=== PATIENT | female | born 1970 | race Caucasian/White ===

== ENCOUNTER 2017-09-11 13:43 | Emergency (ER) | payer MEDICARE, OTHER ==
[2017-09-11 15:29] LABS: ADD MAN DIFF? NO
[2017-09-11 15:33] LABS: WHITE BLOOD COUNT 7.1 10^3/ul (4.8-10.8)
[2017-09-11 15:33] LABS: BASOPHIL # 0.1 10^3/ul (0.0-0.1); BASOPHILS % 1.1 % (0.0-2.0); EOSINOPHILS # 0.1 10^3/ul (0.0-0.5); HEMATOCRIT 43.9 % (37.0-47.0); HEMOGLOBIN 15.1 g/dl (12.0-16.0); LYMPHOCYTES # 2.2 10^3/ul (0.8-2.9); LYMPHOCYTES % 31.4 % (15.0-51.0); MEAN CORPUSCULAR HEMOGLOBIN 32.8 pg (29.0-33.0); MEAN CORPUSCULAR HGB CONC 34.4 g/dl (32.0-37.0); MEAN CORPUSCULAR VOLUME 95.4 fl (82.0-101.0); MEAN PLATELET VOLUME 10.1 fl (7.4-10.4); MONOCYTE # 0.4 10^3/ul (0.3-0.9); MONOCYTES % 5.4 % (0.0-11.0); NEUTROPHIL # 4.3 10^3/ul (1.6-7.5); NEUTROPHILS % 60.8 % (39.0-77.0); PLATELET COUNT 260 10^3/UL (140-415); RED CELL DISTRIBUTION WIDTH 12.8 % (11.5-14.5)
[2017-09-11] MEDS: METOCLOPRAMIDE 10 MG INJ IV (15:35)
[2017-09-11] MEDS: LACTATED RINGER'S 1,000 ML IV (15:35)
[2017-09-11] MEDS: morphine 4 MG/ML VIAL IV (15:35)
[2017-09-11] MEDS: SOD CHLORIDE 0.9% 1,000 ML IV (15:36)
[2017-09-11 15:44] LABS: ADD UMIC YES; UR ASCORBIC ACID NEGATIVE (NEGATIVE); UR BILIRUBIN (Dip) NEGATIVE (NEGATIVE); UR BLOOD (Dip) 1+ mg/dL (NEGATIVE); UR CLARITY SLIGHTLY CLOUDY (CLEAR); UR COLOR YELLOW (YELLOW); UR GLUCOSE (Dip) NEGATIVE (NEGATIVE); UR KETONES (Dip) 2+ mg/dL (NEGATIVE); UR LEUKOCYTE ESTERASE (Dip) NEGATIVE Leu/ul (NEGATIVE); UR MUCUS FEW /HPF (NONE SEEN); UR NITRITE (Dip) NEGATIVE (NEGATIVE); UR RBC 11 /HPF (0-5); UR SPECIFIC GRAVITY (Dip) 1.013 (1.003-1.030); UR SQUAMOUS EPITHELIAL CELL FEW /HPF (FEW); UR TOTAL PROTEIN (Dip) NEGATIVE (NEGATIVE); UR UROBILINOGEN (Dip) NEGATIVE (NEGATIVE); UR WBC 2 /HPF (0-5)
[2017-09-11 15:51] LABS: ALANINE AMINOTRANSFERASE 28 IU/L (13-69); ALBUMIN 4.6 g/dl (3.3-4.9); ALBUMIN/GLOBULIN RATIO 1.53; ALKALINE PHOSPHATASE 71 IU/L (42-121); ANION GAP 17 (8-16); ASPARTATE AMINO TRANSFERASE 23 IU/L (15-46); BILIRUBIN,INDIRECT 0.3 mg/dl (0-1.1); BILIRUBIN,TOTAL 0.3 mg/dl (0.2-1.3); BLOOD UREA NITROGEN 11 mg/dl (7-20); CALCIUM 9.3 mg/dl (8.4-10.2); CARBON DIOXIDE 21 mmol/L (21-31); CHLORIDE 108 mmol/L (97-110); GLUCOSE 95 mg/dl (70-220); LIPASE 109 U/L (23-300); POTASSIUM 3.7 mmol/L (3.5-5.1); SODIUM 142 mmol/L (135-144); TOTAL PROTEIN 7.6 g/dl (6.1-8.1)
== END 2017-09-11 18:42 | disposition home or self-care (01) ==
LOC: E/R 13:43
DX: G47.00 Insomnia, unspecified (principal); R11.2 Nausea with vomiting, unspecified; E86.0 Dehydration
CPT/HCPCS: 80053; 81001; 82962; 83690; 85025; 93005; 96374; 96375; 99284-25

== ENCOUNTER 2017-10-14 01:15 | Emergency (ER) | payer MEDICARE, OTHER ==
[2017-10-14] MEDS: ONDANSETRON (ODT) 4 MG TAB ODT (03:04)
[2017-10-14] MEDS: morphine 4 MG/ML VIAL IM (03:04)
== END 2017-10-14 03:18 | disposition home or self-care (01) ==
LOC: E/R 01:15
DX: M54.5 Low back pain (principal); G89.29 Other chronic pain
CPT/HCPCS: 99284

== ENCOUNTER 2018-06-29 14:14 | Emergency (ER) | payer MEDICARE, OTHER | END 2018-06-29 16:18 | disposition home or self-care (01) | LOC: FTE 14:14 | DX: J30.9 Allergic rhinitis, unspecified (principal) | CPT/HCPCS: 99283 ==

== ENCOUNTER 2018-07-23 23:25 | Inpatient (IN) | payer MEDICARE, OTHER ==
[2018-07-24] MEDS: LIDOCAINE/MYLANTA 40 ML BTL PO (02:34)
[2018-07-24] MEDS: ONDANSETRON 4 MG INJ IV (02:34)
[2018-07-24] MEDS: BELLADONNA/PHENOBARBITAL TAB PO (02:34)
[2018-07-24] MEDS: SOD CHLORIDE 0.9% 1,000 ML IV ×2 (02:34→03:58)
[2018-07-24] MEDS: FAMOTIDINE 20 MG INJ IV ×3 (02:35→21:13)
[2018-07-24 03:08] LABS: ADD MAN DIFF? NO
[2018-07-24 03:11] LABS: BASOPHIL # 0.1 10^3/ul (0.0-0.1); BASOPHILS % 0.9 % (0.0-2.0); EOSINOPHILS # 0.2 10^3/ul (0.0-0.5); EOSINOPHILS % 2.1 % (0.0-7.0); HEMATOCRIT 37.7 % (37.0-47.0); HEMOGLOBIN 12.8 g/dl (12.0-16.0); LYMPHOCYTES % 33.7 % (15.0-51.0); MEAN CORPUSCULAR HEMOGLOBIN 32.5 pg (29.0-33.0); MEAN CORPUSCULAR VOLUME 95.7 fl (82.0-101.0); MEAN PLATELET VOLUME 10.1 fl (7.4-10.4); MONOCYTE # 0.7 10^3/ul (0.3-0.9); MONOCYTES % 7.8 % (0.0-11.0); NEUTROPHIL # 4.9 10^3/ul (1.6-7.5); NEUTROPHILS % 55.3 % (39.0-77.0); PLATELET COUNT 238 10^3/UL (140-415); RED BLOOD COUNT 3.94 10^6/ul (4.20-5.40); RED CELL DISTRIBUTION WIDTH 12.4 % (11.5-14.5)
[2018-07-24 03:11] LABS: WHITE BLOOD COUNT 8.9 10^3/ul (4.8-10.8)
[2018-07-24 03:34] LABS: ALANINE AMINOTRANSFERASE 20 IU/L (13-69); ALBUMIN 4.5 g/dl (3.3-4.9); ALKALINE PHOSPHATASE 70 IU/L (42-121); ANION GAP 7 (5-13); ASPARTATE AMINO TRANSFERASE 22 IU/L (15-46); BILIRUBIN,INDIRECT 0.3 mg/dl (0-1.1); BILIRUBIN,TOTAL 0.3 mg/dl (0.2-1.3); BLOOD UREA NITROGEN 10 mg/dl (7-20); CALCIUM 9.5 mg/dl (8.4-10.2); CARBON DIOXIDE 30 mmol/L (21-31); CHLORIDE 107 mmol/L (97-110); CREATININE 0.52 mg/dl (0.44-1.00); Estimated GFR > 60 mL/min (>60); GLUCOSE 96 mg/dl (70-220); POTASSIUM 3.8 mmol/L (3.5-5.1); SODIUM 144 mmol/L (135-144); TOTAL PROTEIN 7.5 g/dl (6.1-8.1)
[2018-07-24 03:45] LABS: LIPASE 2115 U/L (23-300)
[2018-07-24] MEDS: FENTAnyl 50 MCG/ML VIAL IV (03:59)
[2018-07-24] MEDS ORDERED: ONDANSETRON 4 MG INJ IV (05:00)
[2018-07-24] MEDS ORDERED: ACETAMINOPHEN 325 MG TAB PO (05:00)
[2018-07-24] MEDS: HYDROmorphONE 0.5 MG/0.5 ML SYG IV (05:56)
[2018-07-24] MEDS ORDERED: NACL 0.9% 3 ML SYG IV (07:00)
[2018-07-24] MEDS: DEXTROSE 5%-0.45% NACL 1,000 ML IV ×4 (07:40→22:22)
[2018-07-24] MEDS: HEPARIN 5,000 UNIT/1 ML VIAL SC ×2 (09:07→21:13)
[2018-07-24] MEDS: GABAPENTIN 400 MG CAP PO ×2 (12:34→21:12)
[2018-07-24] MEDS: morphine 2 MG INJ IV ×2 (12:36→19:50)
[2018-07-24] MEDS: CARISOPRODOL 350 MG TAB PO ×2 (13:56→22:21)
[2018-07-24] MEDS: ZOLPIDEM 5 MG TAB PO (22:18)
[2018-07-25] MEDS: ONDANSETRON 4 MG INJ IV (01:43)
[2018-07-25] MEDS: morphine 2 MG INJ IV ×4 (01:43→19:30)
[2018-07-25 05:43] LABS: ADD MAN DIFF? NO
[2018-07-25 05:57] LABS: BASOPHIL # 0.1 10^3/ul (0.0-0.1); BASOPHILS % 1.6 % (0.0-2.0); EOSINOPHILS # 0.2 10^3/ul (0.0-0.5); EOSINOPHILS % 3.3 % (0.0-7.0); HEMATOCRIT 33.4 % (37.0-47.0); HEMOGLOBIN 11.2 g/dl (12.0-16.0); LYMPHOCYTES # 2.3 10^3/ul (0.8-2.9); LYMPHOCYTES % 47.3 % (15.0-51.0); MEAN CORPUSCULAR HEMOGLOBIN 32.4 pg (29.0-33.0); MEAN CORPUSCULAR HGB CONC 33.5 g/dl (32.0-37.0); MEAN CORPUSCULAR VOLUME 96.5 fl (82.0-101.0); MEAN PLATELET VOLUME 10.2 fl (7.4-10.4); MONOCYTE # 0.4 10^3/ul (0.3-0.9); MONOCYTES % 7.5 % (0.0-11.0); NEUTROPHILS % 40.1 % (39.0-77.0); PLATELET COUNT 212 10^3/UL (140-415); RED BLOOD COUNT 3.46 10^6/ul (4.20-5.40); RED CELL DISTRIBUTION WIDTH 12.4 % (11.5-14.5)
[2018-07-25 05:57] LABS: WHITE BLOOD COUNT 4.9 10^3/ul (4.8-10.8)
[2018-07-25 06:32] LABS: ALANINE AMINOTRANSFERASE 23 IU/L (13-69); ALBUMIN 3.5 g/dl (3.3-4.9); ALBUMIN/GLOBULIN RATIO 1.59; ALKALINE PHOSPHATASE 50 IU/L (42-121); ANION GAP 2 (5-13); ASPARTATE AMINO TRANSFERASE 22 IU/L (15-46); BILIRUBIN,INDIRECT 0.4 mg/dl (0-1.1); BILIRUBIN,TOTAL 0.4 mg/dl (0.2-1.3); BLOOD UREA NITROGEN 5 mg/dl (7-20); CALCIUM 8.6 mg/dl (8.4-10.2); CARBON DIOXIDE 28 mmol/L (21-31); CHLORIDE 112 mmol/L (97-110); CHOL/HDL RATIO 3.1 RATIO; CHOLESTEROL 184 mg/dl (100-200); CREATININE 0.56 mg/dl (0.44-1.00); Estimated GFR > 60 mL/min (>60); GLUCOSE 85 mg/dl (70-220); HDL CHOLESTEROL 58 mg/dl (34-88); LDL CHOLESTEROL,CALCULATED 110 mg/dl; MAGNESIUM 2.1 mg/dl (1.7-2.5); PHOSPHORUS 3.9 mg/dl (2.5-4.9); POTASSIUM 3.9 mmol/L (3.5-5.1); SODIUM 142 mmol/L (135-144); TOTAL PROTEIN 5.7 g/dl (6.1-8.1); TRIGLYCERIDES 78 mg/dl (0-149)
[2018-07-25 06:47] LABS: THYROID STIMULATING HORMONE 0.514 MIU/L (0.465-4.680)
[2018-07-25] MEDS: DEXTROSE 5%-0.45% NACL 1,000 ML IV ×3 (06:50→21:31)
[2018-07-25 07:52] LABS: HEMOGLOBIN A1C 5.3 % (0-5.9)
[2018-07-25] MEDS: HEPARIN 5,000 UNIT/1 ML VIAL SC ×2 (08:21→19:57)
[2018-07-25] MEDS: FAMOTIDINE 20 MG INJ IV ×2 (08:21→19:58)
[2018-07-25] MEDS: GABAPENTIN 400 MG CAP PO ×3 (08:21→19:54)
[2018-07-25 11:31] LABS: LIPASE 157 U/L (23-300)
[2018-07-25] MEDS: CARISOPRODOL 350 MG TAB PO ×2 (12:29→21:31)
[2018-07-25] MEDS: traZODone 50 MG TAB PO ×2 (21:31→22:22)
[2018-07-25] MEDS: ZOLPIDEM 5 MG TAB PO (21:31)
[2018-07-25] MEDS: HYDROCODONE/APAP (5/325) TAB PO (22:03)
[2018-07-26] MEDS: morphine 2 MG INJ IV ×5 (05:18→21:18)
[2018-07-26] MEDS: DEXTROSE 5%-0.45% NACL 1,000 ML IV ×2 (05:20→13:10)
[2018-07-26] MEDS: GABAPENTIN 400 MG CAP PO ×3 (08:51→21:14)
[2018-07-26] MEDS: FAMOTIDINE 20 MG INJ IV ×2 (08:51→21:18)
[2018-07-26] MEDS: HEPARIN 5,000 UNIT/1 ML VIAL SC ×2 (08:51→21:19)
[2018-07-26] MEDS ORDERED: ARTIFICIAL TEARS 15 ML OPH BOTH EYES (10:00)
[2018-07-26] MEDS: SUCRALFATE 1 GM TAB PO ×3 (13:23→21:12)
[2018-07-26] MEDS: SOD CHLORIDE 0.9% 1,000 ML IV (14:18)
[2018-07-26] MEDS: traZODone 100 MG TAB PO (21:12)
[2018-07-26] MEDS: ZOLPIDEM 5 MG TAB PO (21:17)
[2018-07-26] MEDS: CARISOPRODOL 350 MG TAB PO (21:17)
[2018-07-27] MEDS: SOD CHLORIDE 0.9% 1,000 ML IV ×2 (03:20→06:13)
[2018-07-27] MEDS: SUCRALFATE 1 GM TAB PO ×2 (08:09→12:42)
[2018-07-27] MEDS: GABAPENTIN 400 MG CAP PO ×3 (08:09→22:03)
[2018-07-27] MEDS: morphine 2 MG INJ IV ×2 (08:09→11:54)
[2018-07-27] MEDS: FAMOTIDINE 20 MG INJ IV (08:10)
[2018-07-27] MEDS: HEPARIN 5,000 UNIT/1 ML VIAL SC ×2 (08:11→20:15)
[2018-07-27] MEDS ORDERED: HYOSCYAMINE 0.125 MG SUBL TAB PO (15:00)
[2018-07-27] MEDS: HYDROmorphONE 1 MG/ML SYG IV ×2 (15:17→20:16)
[2018-07-27] MEDS: POLYETHYLENE GLYCOL 3350 119 GM POWDER PO (17:43)
[2018-07-27] MEDS: SUCRALFATE (100 MG/ML) 10ML CUP PO ×2 (17:44→22:04)
[2018-07-27] MEDS: PANTOPRAZOLE 40 MG INJ IV (17:44)
[2018-07-27] MEDS: MAGNESIUM CITRATE 300 ML BTL PO (17:44)
[2018-07-27] MEDS: BISACODYL (EC) 5 MG TAB PO (17:46)
[2018-07-27] MEDS ORDERED: FAMOTIDINE 20 MG INJ IV (21:00)
[2018-07-27] MEDS: CARISOPRODOL 350 MG TAB PO (22:03)
[2018-07-27] MEDS: ZOLPIDEM 5 MG TAB PO (22:04)
[2018-07-27] MEDS: traZODone 100 MG TAB PO (22:04)
[2018-07-27] MEDS: HYDROCODONE/APAP (5/325) TAB PO (23:20)
[2018-07-28] MEDS: SOD CHLORIDE 0.9% 1,000 ML IV ×2 (01:27→15:21)
[2018-07-28] MEDS: PANTOPRAZOLE 40 MG INJ IV ×2 (05:56→18:00)
[2018-07-28] MEDS: POLYETHYLENE GLYCOL 3350 119 GM POWDER PO (05:56)
[2018-07-28] MEDS: HYDROmorphONE 1 MG/ML SYG IV ×4 (06:46→20:24)
[2018-07-28] MEDS: BISACODYL (EC) 5 MG TAB PO (08:02)
[2018-07-28 08:42] LABS: ADD MAN DIFF? NO
[2018-07-28 08:45] LABS: WHITE BLOOD COUNT 6.8 10^3/ul (4.8-10.8)
[2018-07-28 08:45] LABS: BASOPHIL # 0.1 10^3/ul (0.0-0.1); EOSINOPHILS # 0.1 10^3/ul (0.0-0.5); EOSINOPHILS % 1.9 % (0.0-7.0); HEMATOCRIT 35.4 % (37.0-47.0); LYMPHOCYTES # 2.1 10^3/ul (0.8-2.9); LYMPHOCYTES % 30.6 % (15.0-51.0); MEAN CORPUSCULAR HEMOGLOBIN 32.9 pg (29.0-33.0); MEAN CORPUSCULAR HGB CONC 33.9 g/dl (32.0-37.0); MEAN PLATELET VOLUME 10.1 fl (7.4-10.4); MONOCYTE # 0.5 10^3/ul (0.3-0.9); MONOCYTES % 7.4 % (0.0-11.0); NEUTROPHILS % 58.8 % (39.0-77.0); PLATELET COUNT 210 10^3/UL (140-415); RED BLOOD COUNT 3.65 10^6/ul (4.20-5.40); RED CELL DISTRIBUTION WIDTH 12.6 % (11.5-14.5)
[2018-07-28] MEDS: GABAPENTIN 400 MG CAP PO ×3 (09:00→22:14)
[2018-07-28] MEDS: SUCRALFATE (100 MG/ML) 10ML CUP PO ×4 (09:00→22:13)
[2018-07-28] MEDS: HEPARIN 5,000 UNIT/1 ML VIAL SC ×2 (09:00→22:15)
[2018-07-28 09:06] LABS: ALANINE AMINOTRANSFERASE 31 IU/L (13-69); ALBUMIN 3.8 g/dl (3.3-4.9); ALKALINE PHOSPHATASE 59 IU/L (42-121); ANION GAP 6 (5-13); ASPARTATE AMINO TRANSFERASE 25 IU/L (15-46); BILIRUBIN,INDIRECT 0.4 mg/dl (0-1.1); BILIRUBIN,TOTAL 0.4 mg/dl (0.2-1.3); BLOOD UREA NITROGEN 4 mg/dl (7-20); CALCIUM 8.9 mg/dl (8.4-10.2); CARBON DIOXIDE 25 mmol/L (21-31); CHLORIDE 111 mmol/L (97-110); CREATININE 0.66 mg/dl (0.44-1.00); Estimated GFR > 60 mL/min (>60); GLUCOSE 81 mg/dl (70-220); POTASSIUM 3.4 mmol/L (3.5-5.1); SODIUM 142 mmol/L (135-144); TOTAL PROTEIN 6.5 g/dl (6.1-8.1)
[2018-07-28 09:12] LABS: LIPASE 264 U/L (23-300)
[2018-07-28] MEDS ORDERED: ONDANSETRON 4 MG INJ IV (19:00)
[2018-07-28] MEDS: ZOLPIDEM 5 MG TAB PO (22:14)
[2018-07-28] MEDS: traZODone 100 MG TAB PO (22:14)
[2018-07-28] MEDS: CARISOPRODOL 350 MG TAB PO (22:14)
[2018-07-28] MEDS: HYDROCODONE/APAP (5/325) TAB PO (23:49)
[2018-07-29] MEDS: PANTOPRAZOLE 40 MG INJ IV ×2 (06:13→17:24)
[2018-07-29] MEDS: HYDROmorphONE 1 MG/ML SYG IV ×4 (06:15→21:02)
[2018-07-29 06:43] LABS: ALBUMIN 3.3 g/dl (3.3-4.9); ANION GAP 6 (5-13); BLOOD UREA NITROGEN 5 mg/dl (7-20); CALCIUM 8.6 mg/dl (8.4-10.2); CARBON DIOXIDE 23 mmol/L (21-31); CHLORIDE 113 mmol/L (97-110); CREATININE 0.62 mg/dl (0.44-1.00); GLUCOSE 78 mg/dl (70-220); MAGNESIUM 1.9 mg/dl (1.7-2.5); PHOSPHORUS 4.9 mg/dl (2.5-4.9); POTASSIUM 3.4 mmol/L (3.5-5.1); SODIUM 142 mmol/L (135-144)
[2018-07-29] MEDS: POTASSIUM CHLORIDE (SR) 20 MEQ TAB PO (11:18)
[2018-07-29] MEDS: SUCRALFATE (100 MG/ML) 10ML CUP PO ×4 (11:18→20:57)
[2018-07-29] MEDS: GABAPENTIN 400 MG CAP PO ×3 (11:21→20:57)
[2018-07-29] MEDS: HEPARIN 5,000 UNIT/1 ML VIAL SC ×2 (11:21→20:58)
[2018-07-29] MEDS: SOD CHLORIDE 0.9% 1,000 ML IV (12:40)
[2018-07-29] MEDS: LIDOCAINE/MYLANTA 40 ML BTL PO (15:43)
[2018-07-29] MEDS: HYOSCYAMINE 0.125 MG SUBL TAB PO ×2 (15:43→23:09)
[2018-07-29] MEDS: traZODone 100 MG TAB PO (20:57)
[2018-07-29] MEDS: CARISOPRODOL 350 MG TAB PO (21:39)
[2018-07-30] MEDS: PANTOPRAZOLE 40 MG INJ IV ×2 (06:15→17:46)
[2018-07-30] MEDS: HYOSCYAMINE 0.125 MG SUBL TAB PO ×3 (06:15→21:50)
[2018-07-30 06:30] LABS: ALBUMIN 3.4 g/dl (3.3-4.9); ANION GAP 5 (5-13); BLOOD UREA NITROGEN 3 mg/dl (7-20); CALCIUM 8.8 mg/dl (8.4-10.2); CARBON DIOXIDE 28 mmol/L (21-31); CHLORIDE 110 mmol/L (97-110); CREATININE 0.63 mg/dl (0.44-1.00); GLUCOSE 89 mg/dl (70-220); POTASSIUM 3.7 mmol/L (3.5-5.1); SODIUM 143 mmol/L (135-144)
[2018-07-30] MEDS: HYDROCODONE/APAP (10/325) TAB PO ×2 (09:12→15:37)
[2018-07-30] MEDS: GABAPENTIN 400 MG CAP PO ×3 (09:12→21:07)
[2018-07-30] MEDS: SUCRALFATE (100 MG/ML) 10ML CUP PO ×4 (09:12→21:05)
[2018-07-30] MEDS: HEPARIN 5,000 UNIT/1 ML VIAL SC ×2 (09:14→21:12)
[2018-07-30] MEDS: HYDROmorphONE 1 MG/ML SYG IV ×4 (10:07→21:50)
[2018-07-30] MEDS: traZODone 100 MG TAB PO (21:07)
[2018-07-30] MEDS: ZOLPIDEM 5 MG TAB PO (23:05)
[2018-07-30] MEDS: CARISOPRODOL 350 MG TAB PO (23:53)
[2018-07-31] MEDS: PANTOPRAZOLE 40 MG INJ IV ×2 (06:17→18:04)
[2018-07-31] MEDS: HYOSCYAMINE 0.125 MG SUBL TAB PO ×3 (06:17→22:11)
[2018-07-31] MEDS: SUCRALFATE (100 MG/ML) 10ML CUP PO ×4 (08:46→20:52)
[2018-07-31] MEDS: GABAPENTIN 400 MG CAP PO ×3 (08:46→20:52)
[2018-07-31] MEDS: HEPARIN 5,000 UNIT/1 ML VIAL SC ×2 (08:47→20:53)
[2018-07-31] MEDS: HYDROmorphONE 1 MG/ML SYG IV ×4 (08:47→23:06)
[2018-07-31 09:50] LABS: ADD MAN DIFF? NO
[2018-07-31 09:53] LABS: BASOPHIL # 0.1 10^3/ul (0.0-0.1); BASOPHILS % 1.2 % (0.0-2.0); EOSINOPHILS # 0.1 10^3/ul (0.0-0.5); EOSINOPHILS % 1.9 % (0.0-7.0); HEMATOCRIT 37.7 % (37.0-47.0); HEMOGLOBIN 12.9 g/dl (12.0-16.0); LYMPHOCYTES # 2.6 10^3/ul (0.8-2.9); LYMPHOCYTES % 40.2 % (15.0-51.0); MEAN CORPUSCULAR HEMOGLOBIN 32.3 pg (29.0-33.0); MEAN CORPUSCULAR HGB CONC 34.2 g/dl (32.0-37.0); MEAN CORPUSCULAR VOLUME 94.5 fl (82.0-101.0); MEAN PLATELET VOLUME 10.3 fl (7.4-10.4); MONOCYTE # 0.4 10^3/ul (0.3-0.9); MONOCYTES % 6.5 % (0.0-11.0); NEUTROPHIL # 3.2 10^3/ul (1.6-7.5); PLATELET COUNT 215 10^3/UL (140-415); RED BLOOD COUNT 3.99 10^6/ul (4.20-5.40); RED CELL DISTRIBUTION WIDTH 12.8 % (11.5-14.5)
[2018-07-31 09:53] LABS: WHITE BLOOD COUNT 6.4 10^3/ul (4.8-10.8)
[2018-07-31 10:14] LABS: ANION GAP 6 (5-13); BLOOD UREA NITROGEN 5 mg/dl (7-20); CARBON DIOXIDE 31 mmol/L (21-31); CHLORIDE 106 mmol/L (97-110); CREATININE 0.66 mg/dl (0.44-1.00); GLUCOSE 102 mg/dl (70-220); PHOSPHORUS 4.3 mg/dl (2.5-4.9); POTASSIUM 3.9 mmol/L (3.5-5.1); SODIUM 143 mmol/L (135-144)
[2018-07-31] MEDS: HYDROCODONE/APAP (10/325) TAB PO ×2 (11:09→18:04)
[2018-07-31] MEDS: traZODone 100 MG TAB PO (20:52)
[2018-07-31] MEDS: CARISOPRODOL 350 MG TAB PO (22:11)
[2018-08-01] MEDS: HYOSCYAMINE 0.125 MG SUBL TAB PO (05:36)
[2018-08-01] MEDS: PANTOPRAZOLE 40 MG INJ IV (05:38)
[2018-08-01] MEDS: HYDROmorphONE 1 MG/ML SYG IV ×2 (05:38→09:46)
[2018-08-01] MEDS: SUCRALFATE (100 MG/ML) 10ML CUP PO (08:17)
[2018-08-01] MEDS: GABAPENTIN 400 MG CAP PO (08:17)
[2018-08-01] MEDS: HEPARIN 5,000 UNIT/1 ML VIAL SC (08:18)
[2018-08-01] MEDS: PROPOFOL 40 ML (08:24)
[2018-08-01] MEDS: LIDOCAINE 2% (SDV) 5 ML INJ (08:24)
[2018-08-01] MEDS: IOHEXOL 14.3 MG(I)/ML (ADULT) BTL PO (08:25)
[2018-08-01] MEDS: PROPOFOL 20 ML (08:25)
[2018-08-01 11:04] LABS: ADD MAN DIFF? NO
[2018-08-01 11:09] LABS: BASOPHIL # 0.1 10^3/ul (0.0-0.1); BASOPHILS % 1.1 % (0.0-2.0); EOSINOPHILS # 0.2 10^3/ul (0.0-0.5); HEMATOCRIT 37.9 % (37.0-47.0); HEMOGLOBIN 12.7 g/dl (12.0-16.0); LYMPHOCYTES # 2.6 10^3/ul (0.8-2.9); LYMPHOCYTES % 47.6 % (15.0-51.0); MEAN CORPUSCULAR HEMOGLOBIN 32.6 pg (29.0-33.0); MEAN CORPUSCULAR HGB CONC 33.5 g/dl (32.0-37.0); MEAN CORPUSCULAR VOLUME 97.4 fl (82.0-101.0); MEAN PLATELET VOLUME 10.1 fl (7.4-10.4); MONOCYTE # 0.5 10^3/ul (0.3-0.9); MONOCYTES % 8.9 % (0.0-11.0); NEUTROPHIL # 2.1 10^3/ul (1.6-7.5); NEUTROPHILS % 38.2 % (39.0-77.0); PLATELET COUNT 217 10^3/UL (140-415); RED BLOOD COUNT 3.89 10^6/ul (4.20-5.40); RED CELL DISTRIBUTION WIDTH 13.2 % (11.5-14.5)
[2018-08-01 11:09] LABS: WHITE BLOOD COUNT 5.5 10^3/ul (4.8-10.8)
[2018-08-01 11:35] LABS: LIPASE 96 U/L (23-300)
[2018-08-01 11:39] LABS: ANION GAP 5 (5-13); BLOOD UREA NITROGEN 10 mg/dl (7-20); CARBON DIOXIDE 33 mmol/L (21-31); CHLORIDE 103 mmol/L (97-110); CREATININE 0.69 mg/dl (0.44-1.00); Estimated GFR > 60 mL/min (>60); GLUCOSE 94 mg/dl (70-220); MAGNESIUM 1.7 mg/dl (1.7-2.5); PHOSPHORUS 3.9 mg/dl (2.5-4.9); POTASSIUM 3.9 mmol/L (3.5-5.1); SODIUM 141 mmol/L (135-144)
[2018-08-01 11:55] LABS: ALANINE AMINOTRANSFERASE 33 IU/L (13-69); ALBUMIN 4.2 g/dl (3.3-4.9); ALKALINE PHOSPHATASE 52 IU/L (42-121); ASPARTATE AMINO TRANSFERASE 32 IU/L (15-46); BILIRUBIN,INDIRECT 0.3 mg/dl (0-1.1); BILIRUBIN,TOTAL 0.3 mg/dl (0.2-1.3); TOTAL PROTEIN 6.5 g/dl (6.1-8.1)
== END 2018-08-01 12:00 | disposition home or self-care (01) | DRG 439 ==
LOC: E/R 23:25 → PP2 07-24 04:39
PROC: 0DB58ZX Excision of Esophagus, Via Natural or Artificial Opening Endoscopic, Diagnostic (ICD-10-PCS; principal; 2018-07-28 16:15)
PROC: 0DB68ZX Excision of Stomach, Via Natural or Artificial Opening Endoscopic, Diagnostic (ICD-10-PCS; 2018-07-28 16:15)
PROC: 0D5P8ZZ Destruction of Rectum, Via Natural or Artificial Opening Endoscopic (ICD-10-PCS; 2018-07-28 16:15)
PROC: 0DBG8ZX Excision of Left Large Intestine, Via Natural or Artificial Opening Endoscopic, Diagnostic (ICD-10-PCS; 2018-07-28 16:15)
PROC: 0DBF8ZX Excision of Right Large Intestine, Via Natural or Artificial Opening Endoscopic, Diagnostic (ICD-10-PCS; 2018-07-28 16:15)
DX: K85.90 Acute pancreatitis without necrosis or infection, unspecified (principal); R64 Cachexia; Z68.1 Body mass index [BMI] 19.9 or less, adult; M79.7 Fibromyalgia; K29.70 Gastritis, unspecified, without bleeding; G89.4 Chronic pain syndrome; K22.70 Barrett's esophagus without dysplasia; K44.9 Diaphragmatic hernia without obstruction or gangrene; R19.7 Diarrhea, unspecified; K62.1 Rectal polyp; K64.8 Other hemorrhoids; Z79.1 Long term (current) use of non-steroidal anti-inflammatories (NSAID); Z80.0 Family history of malignant neoplasm of digestive organs
CPT/HCPCS: 36415; 71045; 74176; 76705; 80048; 80053; 80061; 80069; 80076; 83036; 83690; 83735; 84100; 84443; 85025; 88305; 88312; 96361; 96374; 96375; 99285-25

== ENCOUNTER 2018-08-04 13:21 | Emergency (ER) | payer MEDICARE, OTHER ==
[2018-08-04 17:21] LABS: ADD MAN DIFF? NO
[2018-08-04 17:27] LABS: BASOPHIL # 0.1 10^3/ul (0.0-0.1); BASOPHILS % 0.8 % (0.0-2.0); EOSINOPHILS # 0.1 10^3/ul (0.0-0.5); EOSINOPHILS % 1.8 % (0.0-7.0); HEMATOCRIT 36.4 % (37.0-47.0); HEMOGLOBIN 12.4 g/dl (12.0-16.0); LYMPHOCYTES % 32.6 % (15.0-51.0); MEAN CORPUSCULAR HEMOGLOBIN 32.6 pg (29.0-33.0); MEAN CORPUSCULAR HGB CONC 34.1 g/dl (32.0-37.0); MEAN CORPUSCULAR VOLUME 95.8 fl (82.0-101.0); MEAN PLATELET VOLUME 9.5 fl (7.4-10.4); MONOCYTE # 0.5 10^3/ul (0.3-0.9); MONOCYTES % 8.6 % (0.0-11.0); NEUTROPHIL # 3.5 10^3/ul (1.6-7.5); PLATELET COUNT 230 10^3/UL (140-415); RED CELL DISTRIBUTION WIDTH 13.2 % (11.5-14.5)
[2018-08-04 17:27] LABS: WHITE BLOOD COUNT 6.2 10^3/ul (4.8-10.8)
[2018-08-04] MEDS: ONDANSETRON 4 MG INJ IV (17:27)
[2018-08-04] MEDS: HYDROmorphONE 1 MG/ML SYG IV (17:27)
[2018-08-04] MEDS: SOD CHLORIDE 0.9% 1,000 ML IV (17:27)
[2018-08-04 17:45] LABS: ALANINE AMINOTRANSFERASE 43 IU/L (13-69); ALBUMIN 4.1 g/dl (3.3-4.9); ALBUMIN/GLOBULIN RATIO 1.41; ALKALINE PHOSPHATASE 51 IU/L (42-121); ANION GAP 10 (5-13); ASPARTATE AMINO TRANSFERASE 33 IU/L (15-46); BILIRUBIN,INDIRECT 0.4 mg/dl (0-1.1); BILIRUBIN,TOTAL 0.4 mg/dl (0.2-1.3); BLOOD UREA NITROGEN 7 mg/dl (7-20); CALCIUM 9.2 mg/dl (8.4-10.2); CARBON DIOXIDE 27 mmol/L (21-31); CHLORIDE 103 mmol/L (97-110); CREATININE 0.51 mg/dl (0.44-1.00); Estimated GFR > 60 mL/min (>60); GLUCOSE 103 mg/dl (70-220); LIPASE 117 U/L (23-300); POTASSIUM 4.2 mmol/L (3.5-5.1); SODIUM 140 mmol/L (135-144)
[2018-08-04] MEDS: BELLADONNA/PHENOBARBITAL TAB PO (18:48)
[2018-08-04] MEDS: LIDOCAINE/MYLANTA 40 ML BTL PO (18:48)
== END 2018-08-04 19:05 | disposition home or self-care (01) ==
LOC: E/R 13:21
DX: K29.00 Acute gastritis without bleeding (principal)
CPT/HCPCS: 36415; 80053; 83690; 85025; 96374; 96375; 99284-25

== ENCOUNTER 2018-08-06 21:18 | Emergency (ER) | payer MEDICARE, OTHER ==
[2018-08-06] MEDS: SOD CHLORIDE 0.9% 1,000 ML IV (22:04)
[2018-08-06 22:05] LABS: ADD MAN DIFF? NO
[2018-08-06 22:07] LABS: WHITE BLOOD COUNT 7.5 10^3/ul (4.8-10.8)
[2018-08-06 22:07] LABS: BASOPHIL # 0.1 10^3/ul (0.0-0.1); BASOPHILS % 0.8 % (0.0-2.0); EOSINOPHILS # 0.2 10^3/ul (0.0-0.5); EOSINOPHILS % 2.4 % (0.0-7.0); HEMATOCRIT 39.3 % (37.0-47.0); LYMPHOCYTES # 2.9 10^3/ul (0.8-2.9); LYMPHOCYTES % 38.9 % (15.0-51.0); MEAN CORPUSCULAR HEMOGLOBIN 32.3 pg (29.0-33.0); MEAN CORPUSCULAR HGB CONC 33.1 g/dl (32.0-37.0); MEAN CORPUSCULAR VOLUME 97.8 fl (82.0-101.0); MEAN PLATELET VOLUME 9.6 fl (7.4-10.4); MONOCYTE # 0.6 10^3/ul (0.3-0.9); MONOCYTES % 7.5 % (0.0-11.0); NEUTROPHIL # 3.8 10^3/ul (1.6-7.5); PLATELET COUNT 285 10^3/UL (140-415); RED BLOOD COUNT 4.02 10^6/ul (4.20-5.40); RED CELL DISTRIBUTION WIDTH 12.9 % (11.5-14.5)
[2018-08-06] MEDS: ONDANSETRON 4 MG INJ IV ×2 (22:09→23:21)
[2018-08-06] MEDS: FAMOTIDINE 20 MG INJ IV (22:09)
[2018-08-06 22:12] LABS: ADD UMIC YES; UR ASCORBIC ACID NEGATIVE (NEGATIVE); UR BILIRUBIN (Dip) NEGATIVE (NEGATIVE); UR BLOOD (Dip) 1+ mg/dL (NEGATIVE); UR CLARITY CLEAR (CLEAR); UR COLOR STRAW (YELLOW); UR GLUCOSE (Dip) NEGATIVE (NEGATIVE); UR KETONES (Dip) NEGATIVE (NEGATIVE); UR LEUKOCYTE ESTERASE (Dip) NEGATIVE Leu/ul (NEGATIVE); UR NITRITE (Dip) NEGATIVE (NEGATIVE); UR RBC 0 /HPF (0-5); UR SPECIFIC GRAVITY (Dip) 1.003 (1.003-1.030); UR TOTAL PROTEIN (Dip) NEGATIVE (NEGATIVE); UR UROBILINOGEN (Dip) NEGATIVE (NEGATIVE); UR WBC 2 /HPF (0-5)
[2018-08-06 22:31] LABS: ALANINE AMINOTRANSFERASE 31 IU/L (13-69); ALBUMIN 4.6 g/dl (3.3-4.9); ALBUMIN/GLOBULIN RATIO 1.64; ALKALINE PHOSPHATASE 56 IU/L (42-121); ANION GAP 7 (5-13); ASPARTATE AMINO TRANSFERASE 22 IU/L (15-46); BILIRUBIN,INDIRECT 0.3 mg/dl (0-1.1); BILIRUBIN,TOTAL 0.3 mg/dl (0.2-1.3); BLOOD UREA NITROGEN 11 mg/dl (7-20); CALCIUM 9.4 mg/dl (8.4-10.2); CARBON DIOXIDE 29 mmol/L (21-31); CHLORIDE 104 mmol/L (97-110); CREATININE 0.57 mg/dl (0.44-1.00); Estimated GFR > 60 mL/min (>60); GLUCOSE 101 mg/dl (70-220); LIPASE 321 U/L (23-300); POTASSIUM 3.7 mmol/L (3.5-5.1); SODIUM 140 mmol/L (135-144); TOTAL PROTEIN 7.4 g/dl (6.1-8.1)
[2018-08-06] MEDS: HYDROmorphONE 1 MG/ML SYG IV (23:21)
== END 2018-08-07 00:28 | disposition home or self-care (01) ==
LOC: FTE 08-07 00:28
DX: R11.2 Nausea with vomiting, unspecified (principal); R19.7 Diarrhea, unspecified
CPT/HCPCS: 36415; 80053; 81001; 83690; 84703; 85025; 96361; 96374; 96375; 96376; 99284-25